=== PATIENT | female | born 1990 | race American Indian/Alaskan Native ===

== ENCOUNTER 2016-06-20 09:13 | Outpatient (CLI) | payer OTHER ==
--- NOTE | 2016-06-20 11:22 | Ultrasound Report ---
LEFT BREAST ULTRASOUND: 06/20/16 09:13:00 CLINICAL: Left breast lumpiness. COMPARISON: None. FINDINGS: Ultrasound left breast(including all four quadrants and the retroareolar area) was performed. An oval benign cyst at 10 o'clock 4 cm from the nipple measures 1.8 x 1.1 x 1.77 m. A benign cyst at 10 o'clock 6 cm from the nipple measures 7 x 7 x 3 mm. A benign intramammary lymph node at 11 o'clock 7 cm from the nipple measures 5 x 4 x 2 mm. A benign cyst at 6 o'clock 2 cm from the nipple measures 4 x 2 x 2 mm. No solid mass or shadowing. IMPRESSION: Benign cysts and a benign intramammary lymph node. BI-RADS 2 - - Benign RECOMMENDATION: Clinical followup and routine mammographic screening based on ACS guidelines.
== END 2016-06-20 09:14 | disposition home or self-care (01) ==
LOC: SPVWC 09:13
PROVIDERS: ATTEND Obstetrics & Gynecology
DX: N60.01 Solitary cyst of right breast (principal); N63 Unspecified lump in breast